=== PATIENT | female | born 1985 | race Two or more races ===

== ENCOUNTER 2020-10-11 22:51 | Emergency (ER) | payer SELFPAY ==
[~2020-10-11] VITALS: Ht 165.1 cm; Wt 113.0 kg
[2020-10-12 00:08] LABS: BASO # 0.1 x10^3/uL (0.0-0.2); BASO % 1 % (0-3); EOS # 0.1 x10^3/uL (0.0-0.7); EOS % 2 % (0-3); HEMATOCRIT 42.7 % (36.0-47.0); HEMOGLOBIN 14.6 g/dL (12.0-15.5); LYMPH % 26 % (24-48); MEAN CORPUSCULAR HEMOGLOBIN 30 pg (25-35); MEAN CORPUSCULAR HGB CONC 34 g/dL (31-37); MEAN CORPUSCULAR VOLUME 87 fL (79-100); MONO # 0.7 x10^3/uL (0.0-1.1); MONO % 9 % (0-9); NEUT % 63 % (31-73); PLATELET COUNT 206 x10^3/uL (140-400); RED BLOOD COUNT 4.93 x10^6/uL (3.50-5.40); RED CELL DISTRIBUTION WIDTH 13.3 % (11.5-14.5); WHITE BLOOD COUNT 7.9 x10^3/uL (4.0-11.0)
[2020-10-12 00:18] LABS: CALCIUM 8.9 mg/dL (8.5-10.1); CREATININE 0.9 mg/dL (0.6-1.0); GFR 70.8; POTASSIUM 3.4 mmol/L (3.5-5.1)
[2020-10-12 00:25] LABS: ALBUMIN 3.9 g/dL (3.4-5.0); ALBUMIN/GLOBULIN RATIO 1.1 (1.0-1.7); TOTAL BILIRUBIN 1.2 mg/dL (0.2-1.0); TOTAL PROTEIN 7.4 g/dL (6.4-8.2)
--- NOTE | 2020-10-12 00:36 | PHYS DOC ---
General Adult EDM: Chief Complaint: SHORTNESS OF BREATH HPI: HPI: 35-year-old female past medical history of obesity, presents to the ED with complaints of shortness of breath and left-sided chest pain for the past 2 days. Patient states her chest pain lasted for less than 1 minute, described as heavy, "it scared me." Reports associated sore throat (only when drinking) and anorexia. Is very concerned she may have Covid. Second pfizer vaccine was 3 weeks ago. Has an IUD-unsure of copper or progestin. Paternal grandmother with history of CAD. No personal or family history of AAA, AAD, CTD (ehlos danlos or marfans), cardiac arrhythmias (need for AICD), sudden or unexplainable (under 50 years of age or with exertion), or clotting disorders. Review of Systems: Review of Systems: Constitutional: Denies fever or chills. [] Eyes: Denies change in visual acuity. [] HENT: Denies nasal congestion or rhinorrhea Respiratory: Denies cough or hemoptysis Cardiovascular: Denies active chest pain or associated syncope GI: Denies abdominal pain, nausea, vomiting, : Denies dysuria or vaginal bleeding Musculoskeletal: Denies back pain or joint pain. [] Integument: Denies rash or diaphoresis Neurologic: Denies headache, focal weakness or sensory changes. [] Endocrine: Denies polyuria or polydipsia. [] Lymphatic: Denies swollen glands. [] Psychiatric: Denies depression or SI/HI Heart Score: C/O Chest Pain: Yes HEART Score for Chest Pain: HEART Score for Chest Pain Response (Comments) Value History Slighlty/Non-Suspicious 0 ECG Normal 0 Age < 45 0 Risk Factors 1 or 2 Risk Factors 1 Troponin < Normal Limit 0 Total 1 Risk Factors: Risk Factors: DM, Current or recent (<one month) smoker, HTN, HLP, family history of CAD, obesity. Risk Scores: Score 0 - 3: 2.5% MACE over next 6 weeks - Discharge Home Score 4 - 6: 20.3% MACE over next 6 weeks - Admit for Clinical Observation Score 7 - 10: 72.7% MACE over next 6 weeks - Early Invasive Strategies Physical Exam: PE: Constitutional: Well developed, well nourished, no acute distress, non-toxic appearance. HENT: Normocephalic, atraumatic, unremarkable oropharynx Eyes: EOMI, conjunctiva normal, no discharge. Neck: Normal range of motion, supple, Cardiovascular: S1/2 present, regular rhythm Lungs & Thorax: Speaking in full sentences, bilateral equal chest rise, no tachypnea or increased work of breathing Abdomen: soft, no tenderness, Skin: Warm, dry, no erythema, no rash. [] Extremities: No tenderness, no cyanosis, no lower extremity edema Neurologic: Alert and oriented X 3, normal motor function, normal sensory function, no focal deficits noted. [] Psychologic: Affect normal, judgement normal, mood -mildly anxious Current Patient Data: Labs: Laboratory Tests Test 10/11/20 23:50 10/12/20 00:04 White Blood Count 7.9 x10^3/uL (4.0-11.0) Red Blood Count 4.93 x10^6/uL (3.50-5.40) Hemoglobin 14.6 g/dL (12.0-15.5) Hematocrit 42.7 % (36.0-47.0) Mean Corpuscular Volume 87 fL (79-100) Mean Corpuscular Hemoglobin 30 pg (25-35) Mean Corpuscular Hemoglobin Concent 34 g/dL (31-37) Red Cell Distribution Width 13.3 % (11.5-14.5) Platelet Count 206 x10^3/uL (140-400) Neutrophils (%) (Auto) 63 % (31-73) Lymphocytes (%) (Auto) 26 % (24-48) Monocytes (%) (Auto) 9 % (0-9) Eosinophils (%) (Auto) 2 % (0-3) Basophils (%) (Auto) 1 % (0-3) Neutrophils # (Auto) 5.0 x10^3/uL (1.8-7.7) Lymphocytes # (Auto) 2.0 x10^3/uL (1.0-4.8) Monocytes # (Auto) 0.7 x10^3/uL (0.0-1.1) Eosinophils # (Auto) 0.1 x10^3/uL (0.0-0.7) Basophils # (Auto) 0.1 x10^3/uL (0.0-0.2) Sodium Level 143 mmol/L (136-145) Potassium Level 3.4 mmol/L (3.5-5.1) L Chloride Level 106 mmol/L (98-107) Carbon Dioxide Level 25 mmol/L (21-32) Anion Gap 12 (6-14) Blood Urea Nitrogen 12 mg/dL (7-20) Creatinine 0.9 mg/dL (0.6-1.0) Estimated GFR (Cockcroft-Gault) 70.8 BUN/Creatinine Ratio 13 (6-20) Glucose Level 94 mg/dL (70-99) Calcium Level 8.9 mg/dL (8.5-10.1) Total Bilirubin 1.2 mg/dL (0.2-1.0) H Aspartate Amino Transferase (AST) 24 U/L (15-37) Alanine Aminotransferase (ALT) 29 U/L (14-59) Alkaline Phosphatase 68 U/L (46-116) Troponin I Quantitative < 0.017 ng/mL (0.000-0.055) Total Protein 7.4 g/dL (6.4-8.2) Albumin 3.9 g/dL (3.4-5.0) Albumin/Globulin Ratio 1.1 (1.0-1.7) POC Urine HCG, Qualitative Hcg negative (Negative) Laboratory Tests 10/11/20 23:50 Laboratory Tests 10/11/20 23:50 EKG: EKG: Sinus rhythm at 70 bpm, QRS 120, T wave inversion lead III, S1, no obvious ST elevations or ST depressions Radiology/Procedures: Radiology/Procedures: []IMAGING REPORT Signed PATIENT: RADHA FLETCHER ACCOUNT: [id number] : 1985 LOCATION: ER AGE: 35 SEX: F EXAM STATUS: REG ER ORD. PHYSICIAN: ATUL PACKER DO REASON: left cp PROCEDURE: PORTABLE CHEST 1V EXAMINATION: XR CHEST 1V CLINICAL HISTORY: Left-sided chest pain EXAM DATE/TIME: 10/11/2020 12:17 AM COMPARISON: None FINDINGS: Lines, Tubes, and Devices: None. Cardiomediastinal Silhouette: Within normal limits. Lungs and Pleura: No evidence of focal airspace consolidation or pleural effusion. Pulmonary vasculature unremarkable. Bones and Soft Tissues: No acute osseous abnormality. IMPRESSION: No evidence of acute cardiopulmonary abnormality. Electronically signed by: Elio Acosta DO (10/12/2020 12:43 AM) [facility] DICTATED and SIGNED BY: ELIO ACOSTA DO DATE: 10/12/20 [id number] 0 Course & Med Decision Making: Course & Med Decision Making Pertinent Labs and Imaging studies reviewed. (See chart for details) Concern for shortness of breath and chest pain. No ischemia on EKG. Troponin negative. Chest x-ray with no acute process. Questionable progesterone IUD. D-dimer wnl. No tachycardia or hypoxia. No unilateral leg swelling. Patient is veryconcerned for risk of Covid. Covid test pending. Patient educated very low risk of approximately 6% chance of Covid. No history of prior Covid. Will discharge home with strict ED return precautions were given for abscess, syncope, worsening pain or increased work of breathing. Encouraged urgent outpatient follow-up with PMD and pulmonology. Life-threatening processes were considered but are low suspicion at this time, given history, physical exam and ED workup. Pt was educated on all prescription medications and adverse effects. All patient's questions were answered and pt was stable at time of discharge. Life/limb-threatening differential includes but is not limited to, ACS, dysrhythmia, pneumothorax or hemothorax, pulmonary embolus, pneumonia, bronchoconstriction, pulmonary edema, angioedema, epiglottitis, tracheitis, Srinivas's angina, RPA/BULB FARMWORKER, anaphylaxis, angioedema, cardiac tamponade or murmurs, pericarditis, myocarditis, poisoning or toxicity, sepsis or aut oimmune/neurologic disease. I spoken with the patient and her caregivers. I explained the patient's condition, diagnoses and treatment plan based on the information available to me at this time. I have answered the patient and her caregiver's questions and addressed any concerns. The patient and her caregivers have a good understanding of patient's diagnosis, condition and treatment plan as can be expected at this point. Vital signs have been stable. Patient's condition is stable and appropriate for discharge from the emergency department. Patient will pursue further outpatient evaluation with primary care physician or other designated or consulting physician as outlined in the discharge instructions. The patient and/or caregivers are agreeable to this plan of care and follow-up instructions have been explained in detail. The patient and/or caregivers have received these instructions in written form and have expressed an understanding of the discharge instructions. The patient and/or caregivers are aware that any significant change of condition or worsening of symptoms sunny uld prompt immediate return to this or the closest emergency department or call to 911. Rosa Disclaimer: Rosa Disclaimer: This electronic medical record was generated, in whole or in part, using a voice recognition dictation system. Departure Departure Impression: Primary Impression: Shortness of breath Disposition: HOME / SELF CARE / HOMELESS Condition: STABLE Referrals: NO PCP (PCP) Follow-up with your primary care physician in 24 to 48 hours OR FOLLOW UP WITH FAMILY MEDICINE: [address], [address] [place] [address] Patient Instructions: Shortness of Breath Additional Instructions: FOLLOW UP WITH PULMONOLOGY: FOR DEFINITIVE MANAGEMENT [facility] [address] [place] [address] EMERGENCY DEPARTMENT GENERAL DISCHARGE INSTRUCTIONS Thank you for coming to [facility] Emergency Department (ED) today and trusting us with you care. We trust that you had a positive experience in our Emergency Department. If you wish to speak to the department management, you may call the Director at [phone]. YOUR FOLLOW UP INSTRUCTIONS ARE FOLLOWS: 1. Do you have a private Doctor? If you do not have a private doctor, please ask for a resource list of physicians or clinics that may be able to assist you with follow up care. 2. The Emergency Physicain has interpreted your x-rays. The X-Ray specialist will also review them. If there is a change in the findings, you will be notified in 48 hours when at all possible. 3. A lab test or culture has been done, your results will be reviewed and you will be notified if you need a change in treatment. ADDITIONAL INSTRUCTIONS AND INFORMATION: 1. Your care today has been supervised by a physician who is specially trained in emergency care. Many problems require more than one evaluation for a complete diagnosis and treatment. We recommend that you schedule your follow up appointment as recommended to ensure complete treatment of you illness or injury. If you are unable to obtain follow up care and continue to have a problem, or if your condition worsens, we recommend that you return to the ED. 2. We are not able to safely determine your condition over the phone nor are we able to give sound medical advice over the phone. For these safety reasons, if you call for medical advice we will ask you to come to the ED for further evaluation. 3. If you have any questions regarding these discharge instructions please call the ED at [phone]. SAFETY INFORMATION: In the interest of safety, wellness, and injury prevention; we encourage you to wear your sealbelt, if you smoke; quite smoking, and we encourage family to use a protective helmet for bicycling and other sporting events that present an increased risk for head injury. IF YOUR SYMPTOMS WORSEN OR NEW SYMPTOMS DEVELOP, OR YOU HAVE CONCERNS ABOUT YOUR CONDITION; OR IF YOUR CONDITION WORSENS WHILE YOU ARE WAITING FOR YOUR FOLLOW UP APPOINTMENT; EITHER CONTACT YOUR PRIMARY CARE DOCTOR, THE PHYSICIAN WHOSE NAME AND NUMBER YOU WERE GIVEN, OR RETURN TO THE ED IMMEDIATELY. ATUL RILEY DO Oct 12, 2020 00:36
--- NOTE | 2020-10-12 00:46 | RAD ---
EXAMINATION: XR CHEST 1V CLINICAL HISTORY: Left-sided chest pain EXAM DATE/TIME: 10/11/2020 12:17 AM COMPARISON: None FINDINGS: Lines, Tubes, and Devices: None. Cardiomediastinal Silhouette: Within normal limits. Lungs and Pleura: No evidence of focal airspace consolidation or pleural effusion. Pulmonary vasculat ure unremarkable. Bones and Soft Tissues: No acute osseous abnormality. IMPRESSION: No evidence of acute cardiopulmonary abnormality. Electronically signed by: Elio Topete DO (10/12/2020 12:43 AM) NAIN
[2020-10-12 03:00] VITALS: BP 137/82
--- NOTE | 2020-10-12 06:18 | EKG ---
[facility] [address] [place] [address] Test Date: 2020-10-11 Test Time: 23:41:41 Pat Name: RADHA FLETCHER Department: Room: Gender: F [employer]: : 1985 Requested By: ATUL PACKER Order Number: [id number] Reading MD: Measurements Intervals [place] Rate: 72 P: -15 ID: [id number] QRS: 69 QRSD: 122 T: 24 QT: 398 QTc: 437 Interpretive Statements SINUS RHYTHM INCOMPLETE RIGHT BUNDLE BRANCH BLOCK OTHERWISE NORMAL ECG RI6.02 No previous ECG available for comparison
--- NOTE | 2020-10-12 15:23 | NUR ---
IP: Attempted to contact pt concerning covid results. No answer, voice box is full. SMS sent.
--- NOTE | 2020-10-13 10:52 | NUR ---
IP: Attempted a second time to contact pt concerning covid test. No answer and voicemail is full. No message left.
== END 2020-10-12 03:16 | disposition home or self-care (01) ==
LOC: ER 22:51
DX: R06.02 Shortness of breath (principal); R07.89 Other chest pain; J02.9 Acute pharyngitis, unspecified
CPT/HCPCS: 36415; 71045; 80053; 81025; 84484; 85025; 85379; 93005; 99285; U0003; U0005